=== PATIENT | female | born 1985 | race Caucasian/White ===

== ENCOUNTER 2021-08-19 13:43 | Emergency (ER) | payer OTHER ==
[~2021-08-19 13:43] MED LIST: CARAFATE1 GM PO; COLESTID 1GM TAB1 GM PO; FEOSOL325 MG PO; FLOVENT HF120 PUFFS/ INH; NEXIUM20 MG PO; NORCO 5-325 TA1 EACH PO; TRANDATE100 MG PO; VENTOLIN HFA IN18 GM INH; ZOFRAN8 MG PO
[2021-08-19 14:50] LABS: BILIRUBIN NEGATIVE (NEGATIVE); BLOOD NEGATIVE Ery/uL (NEGATIVE); CLARITY CLEAR (CLEAR); COLOR YELLOW (YELLOW); GLUCOSE (U) NORMAL (NORMAL); LEUKOCYTES NEGATIVE Leu/uL (NEGATIVE); NITRITE NEGATIVE (NEGATIVE); PROTEIN NEGATIVE (NEGATIVE); SPECIFIC GRAVITY <=1.005 (1.001-1.030); UROBILINOGEN 0.2 mg/dL (0.2-1.0)
[2021-08-19 14:50] LABS: BASOPHIL 0.5 % (0-2); EOSINOPHIL 2.8 % (0-5); HCT 43.4 % (37.0-47.0); HGB 14.2 g/dl (12.5-16.0); MCH 28.6 pg (25.0-31.0); MCHC 32.7 g/dL (32.0-36.0); MCV 87.3 fL (78.0-100.0); MPV 9.7 fL (6.0-9.5); NEUTROPHIL 72.4 % (41-80); NRBC 0; PLT 340 K/uL (150-400); RBC 4.97 M/uL (4.20-5.40); RDW 13.4 % (11.5-14.0); WBC 7.9 K/uL (4.0-10.5)
[2021-08-19 15:12] LABS: ALBUMIN 3.5 g/dL (3.4-5.0); BILIRUBIN - TOTAL 0.4 mg/dL (0.2-1.0); BUN/CREAT RATIO (CALC) 9.3 RATIO; CREATININE 0.75 mg/dL (0.51-0.95); GLOBULIN (CALCULATION) 3.8 g/dL; TOTAL PROTEIN 7.3 g/dL (6.4-8.2)
[2021-08-19] MEDS ORDERED: PRILOSEC20 MG PO (16:28)
== END 2021-08-19 16:58 | disposition home or self-care (01) ==
LOC: FER 13:43
PROVIDERS: Physician Assistant
DX: K21.9 Gastro-esophageal reflux disease without esophagitis (principal); I10 Essential (primary) hypertension; J45.909 Unspecified asthma, uncomplicated; Z79.899 Other long term (current) drug therapy; Z28.310 Unvaccinated for COVID-19
CPT/HCPCS: 36415; 80053; 81003; 83690; 85025; Q9967